=== PATIENT | male | born 1985 ===

== ENCOUNTER → 2018-09-04 18:55 | Outpatient (REF) | payer OTHER, SELFPAY ==
[2018-09-04 19:54] LABS: Alanine Aminotransferase 43 IU/L (21-72); Albumin 4.5 g/dL (3.5-5.0); Albumin Globulin Ratio 1.6 (1.0-2.8); Alkaline Phosphatase 91 U/L (38-126); Aspartate Aminotransferase 24 IU/L (17-59); BUN Creatinine Ratio 16.4 (6-22); Bilirubin Total 0.6 mg/dL (0.2-1.3); Blood Urea Nitrogen 18 mg/dL (9-20); Calcium 9.9 mg/dL (8.4-10.2); Carbon Dioxide 30 mmol/L (22-32); Chloride 99 mmol/L (98-107); Cholesterol 199 mg/dL (140-199); Estimated Glomerular Filt Rate > 60.0 mL/min (>60); Globulin 2.9 g/dL (1.7-4.1); Glucose 130 mg/dL (70-100); HDL Cholesterol 41 mg/dL (40-60); HEMOLYSIS < 15 (0-50); LDL Cholesterol Calculated 83 mg/dL (<100); Potassium 4.4 mmol/L (3.4-5.1); Sodium 138 mmol/L (137-145); Total Protein 7.4 g/dL (6.3-8.2); Triglycerides 373 mg/dL (35-150)
[2018-09-04 20:12] LABS: Hemoglobin A1C% w Est Avg Glu 8.1 % (4.0-6.0)
[2018-09-08 08:24] LABS: Tacrolimus 5.6 mcg/L (5.0-20.0)
== END ==
LOC: LAB 18:55
PROVIDERS: Visit Provider Family Medicine Geriatric Medicine
DX: N05.9 Unspecified nephritic syndrome with unspecified morphologic changes (principal); T86.10 Unspecified complication of kidney transplant; E11.9 Type 2 diabetes mellitus without complications
CPT/HCPCS: 36415; 80053; 80061; 80197; 83036

== ENCOUNTER → 2018-11-03 19:23 | Outpatient (REF) | payer OTHER, SELFPAY ==
[2018-11-03 20:47] LABS: Estimated Glomerular Filt Rate 58.7 mL/min (>60)
== END ==
LOC: LAB 19:23
PROVIDERS: Visit Provider Physician Assistant
DX: N05.9 Unspecified nephritic syndrome with unspecified morphologic changes (principal)
CPT/HCPCS: 36415; 82565